=== PATIENT | male | born 1975 | race Caucasian/White ===

== ENCOUNTER 2016-12-01 07:00 | Day surgery (SDC) | payer BC ==
[~2016-12-01 07:00] MED LIST: PROSCAR5 M1 PO
== END 2016-12-01 14:40 ==
LOC: SHSB 07:00 → ORW 08:52 → PACU 10:05 → SHSB 10:50
PROC: 0YU54JZ Supplement Right Inguinal Region with Synthetic Substitute, Percutaneous Endoscopic Approach (ICD-10-PCS; principal; 2016-12-01)
DX: K40.90 Unilateral inguinal hernia, without obstruction or gangrene, not specified as recurrent (principal); Z79.899 Other long term (current) drug therapy
CPT/HCPCS: C1781; J0131; J0690; J1885; J2765